=== PATIENT | female | born 2000 | race African-American/Black ===

== ENCOUNTER 2023-05-06 09:16 | Emergency (ER) | payer OTHER ==
--- NOTE | 2023-05-06 09:45 | ED Physician Documentation ---
PD HPI LOWER EXT INJURY - Stated complaint Stated Complaint: LT FT INJ - Chief complaint Chief Complaint: Trauma Hd/Nk - History obtained from History obtained from: Patient - Additional information Additional information: Patient is a 23-year-old presenting for evaluation of left foot injury that occurred last night. Patient states that she was performing a somersault and is unsure of how she landed with her foot but it has been hurting since. She has not taken ibuprofen or acetaminophen. Denies prior injuries To this foot. Denies injuries elsewhere. Review of Systems Skin: denies: Rash Musculoskeletal: reports: Extremity pain Neurologic: denies: Head injury PD PAST MEDICAL HISTORY - Past Medical History Past Medical History: No Cardiovascular: None Respiratory: None Neuro: None Endocrine/Autoimmune: None GI: None NURSE MIDWIFE: None : None HEENT: None Musculoskeletal: None Derm: None - Past Surgical History Past Surgical History: No - Present Medications Home Medications: Ambulatory Orders Medication Instructions Recorded Confirmed No Known Home Medications 05/06/23 05/06/23 - Allergies Allergies/Adverse Reactions: Allergies Allergy/AdvReac Type Severity Reaction Status Date / Time No Known Drug Allergies Allergy Verified 05/06/23 09:29 - Social History Does the pt smoke?: No Smoking Status: Never smoker Does the pt drink ETOH?: No Does the pt have substance abuse?: No - POLST Patient has POLST: No PD ED PE NORMAL - General General: Alert and oriented X 3, No acute distress, Well developed/nourished - HEENT HEENT: Atraumatic - Cardiac Cardiac: Strong equal pulses - Respiratory Respiratory: No respiratory distress - Derm Derm: Warm and dry - Extremities Extremities: No edema, Other (Mild tenderness over the distal fifth metatarsal on the left foot, no deformity, no swelling, pedal pulses intact, compartments o f extremity are soft, no tenderness to the ankle or more proximally in the extremity, normal range of motion at left knee) - Neuro Neuro: Alert and oriented X 3 Results - Vitals Vitals: Vital Signs - 24 hr 05/06/23 09:27 Temperature 37.0 C Heart Rate 76 Respiratory 15 Rate Blood Pressure 126/66 O2 Saturation 100 Oxygen O2 Source Room air PD Medical Decision Making - ED course Complexity details: reviewed results, re-evaluated patient, d/w patient ED course: Patient presenting for evaluation of left foot injury. No visible deformity noted on exam. Neurovascularly intact. Patient is able to ambulate but she does report pain with walking. An x-ray of the foot was obtained which I reviewed I see no fracture or dislocation. Patient was given a postop shoe and crutches to weight-bear as tolerated and [facility] She is counseled on concerning symptoms to return for. Departure - Departure Disposition: 01 Home, Self Care Clinical Impression: Injury of left foot Condition: Stable Instructions: ED Sprain Foot Follow-Up: [facility]LE[facility] Cartwright [Provider Group] Comments: Your x-ray does not show a broken bone but you may have a sprain to the foot. As you reporting it hurts to walk we have given you a pair of crutches to stay off the foot for a few days. Please continue with acetaminophen or ibuprofen as well as ice and elevation. [facility] If you develop any worsening symptoms return to the ER. Forms: PCP List, Activity restrictions Discharge Date/Time: 05/06/23 11:07
[2023-05-06 10:14] VITALS: BP 126/66
--- NOTE | 2023-05-06 10:47 | XRAY Report ---
PROCEDURE: Foot 3 View LT INDICATIONS: Trauma TECHNIQUE: 3 views of the foot were acquired. COMPARISON: None. FINDINGS: Bones: No fractures or dislocations. No suspicious bony lesions. Soft tissues: No suspicious soft tissue calcifications or masses. IMPRESSION: No acute bony abnormality. Reviewed by: Jalen Garcia MD on 05/06/2023 9:46 AM [email or web address] Approved by: Jalen Garcia MD on 05/06/2023 9:46 AM [facility] Station ID: [id number]
== END 2023-05-06 11:07 | disposition home or self-care (01) ==
LOC: ED 09:16
DX: S99.922A Unspecified injury of left foot, initial encounter (principal); X58.XXXA Exposure to other specified factors, initial encounter
CPT/HCPCS: 99283